=== PATIENT | male | born 2000 ===

== ENCOUNTER 2024-05-25 22:16 | Emergency (ER) | payer SELFPAY ==
[2024-05-25 22:25] VITALS: BP 117/65; PULSE 92; RESP 19; TEMP 37; O2SAT 97; BMI 25.8; BMI 28.5
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
== END 2024-05-26 14:24 ==
LOC: SERX 23:32
PROVIDERS: Emergency Provider Emergency Medicine
DX: Z02.89 Encounter for other administrative examinations (principal)
CPT/HCPCS: 99281